=== PATIENT | female | born 1965 | race Caucasian/White ===

== ENCOUNTER 2025-01-02 09:35 | Outpatient (AMB) | payer OTHER, SELFPAY ==
--- NOTE | 2025-01-02 09:39 | A.OFFPC_ITS ---
Vital Signs 01/02/25 09:53 Height 5 ft 3.9 in Weight 145 lb 4 oz BMI 25.0 BP 115/66 Blood Pressure Location Lt brachial Position Sitting Respiration 12 Pulse 91 Pulse Source Pulse Oximeter Pulse Oximetry (%) 94 Oxygen Delivery Method Room Air Intake Visit Reasons: Est. Care Intake Note: New patient visit Nanotechnology Technician Required: No Allergies No Known Allergies Allergy (Verified 01/02/25 09:39) Medication List - Last Reconciled 01/02/25 by Taylor Wilkerson MD amlodipine 10 mg PO DAILY cholecalciferol (vitamin D3) 50 mcg PO DAILY olanzapine 20 mg PO BEDTIME simvastatin 20 mg PO DAILY Tobacco use date assessed: 01/02/25 Dental Screening Dental Screen Date: 01/02/25 Did you have a dental visit in the last 12 months?: Yes Did you have a dental problem in the last 6 months where you did not have access to dental care?: No Was dental information given to patient?: Patient has dentist HPI HPI Comments History of Present Illness Details The patient is a 59 year old female with a past medical history of hypertension, hyperlipidemia, low vitamin D, brain aneurysms presenting to [facility]. Transfer from [facility]. Records not yet received CV: On amlodipine, simvastatin. Blood pressure controlled. No chest pain, exertional dyspnea. Neuro: history of brain aneurysm. Coil and web with Dr Bettencourt. Follows with Dr Castorena every six months On vitamin D for prior low Vitamin D BH: Following with Dr Abdifatah alcocer in [facility]. On olanzapine Was having intermittent discharge from the right nipple last month for duration of one month that stopped. She is due for mammogram. Reports colonoscopy within the last 10 years at [facility] ROS see HPI PHYSICAL EXAM: GENERAL: Alert and oriented x 3. NAD EYES: EOMI. Anicteric. HENT: Moist mucous membranes. No scleral icterus. No cervical lymphadenopathy. LUNGS: Clear to auscultation bilaterally. CARDIOVASCULAR: Regular rate and rhythm. No murmur. No JVD. ABDOMEN: Soft, non-tender +bs EXTREMITIES: No edema. Non-tender. SKIN: No rashes or lesions. Warm. NEUROLOGIC: No focal neurological deficits. CN II-XII grossly intact PSYCHIATRIC: Cooperative. Appropriate mood and affect [facility] Surgical History H/O brain surgery H/O section Family History Mother Schizophrenia HTN (hypertension) Father HTN (hypertension) Other FHx: mental illness Substance abuse Social History Housing: House Alcohol intake: former Comment: quit 30 years ago Patient Tobacco Use Status: Current someday Tobacco user (quit cigarettes 5 years ago, now smokes cigars) Tobacco use type: Cigar (4 daily) Cigarette Packs Per Day: 1 Years Smoked: 30 e-Cigarette/Vaping Use: Never Used Second Hand Smoke Exposure: No Substance Use Type: Marijuana service: No Current occupational status: unemployed and disabled Current occupational exposures/hazards: No Cognitive needs: No Hearing needs: No Vision needs: Yes (glasses) Questionnaire PHQ-9 Over the last 2 weeks, how often have you been bothered by any of the following problems? 1. Little interest or pleasure in doing things: several days 2. Feeling down, depressed, or hopeless: not at all 3. Trouble falling or staying asleep, or sleeping too much: not at all 4. Feeling tired or having little energy: not at all 5. Poor appetite or overeating: not at all 6. Feeling bad about yourself - or that you are a failure or have let yourself or your family down: not at all 7. Trouble concentrating on things, such as reading the newspaper or watching television: not at all 8. Moving or speaking so slowly that other people could have noticed. Or the opposite - being so fidgety or restless that you have been moving around a lot more than usual: not at all 9. Thoughts that you would be better off or of hurting yourself in some way: not at all Total score: 1 Depression Screening Interpretation: Negative Depression Screening Done: Yes 21902 - PHQ-9 Billing: Yes Source: Developed by Drs. Zana Mason, Hilda Isaac, David Smith and colleagues, with an educational kat from [employer]. Thrive Questionnaire Date Thrive assessed: 01/02/25 I am a: Patient What is your living situation today?: I have a steady place to live Within the past 12 months, did the food you bought not last and you didn't have the money to get more?: Never true Within the past 12 months, did you worry whether your food would run out before you got money to buy more?: Never true Do you have trouble paying for medicines?: No Do you have trouble getting transportation to medical appointments?: No Do you have trouble paying your heating and electricity bill?: No Do you have trouble taking care of your child, family member or friend?: No Do you have trouble with day-to-day activities such as bathing, preparing meals, shopping, managing finances, etc.?: No Are you currently unemployed and looking for a job?: No Are you interested in more education?: No Please select the resources that you would like help with: None Currently or been in a relationship where the following occur: No concerns reported THRIVE Score: 0 AUDIT C Alcohol Use Questionnaire (AUDIT-C) 1. How often do you have a drink containing alcohol?: Never 3. How often do you have six or more drinks on one occasion?: Never Total Score: 0 KIRSTEN-7 AMB Questionnaire KIRSTEN-7 Date KIRSTEN - 7 assessed: 01/02/25 Feeling nervous, anxious, or on edge: 0 = Not at all Not being able to stop or control worryin = Not at all Worrying too much about different things: 0 = Not at all Trouble relaxin = Not at all Being so restless that it is hard to sit still: 0 = Not at all Becoming easily annoyed or irritable: 0 = Not at all Feeling afraid as if something awful might happen: 0 = Not at all Total KIRSTEN-7 score (0-4 normal; 5-9 mild; 10-14 moderate; 15-21 severe): 0 Source: Developed by Drs. Zana Mason, Hilda Isaac, David Smith and colleagues, with an educational kat from [employer]. KIRSTEN-7 Assessment Billing KIRSTEN-7 Assessment Tool: KIRSTEN-7 Assessment 64585 Physical exam (Primary Care) Vital Signs: Last Vital Signs Pulse 91 01/02/25 09:53 Resp 12 01/02/25 09:53 BP 115/66 01/02/25 09:53 Pulse Ox 94 01/02/25 09:53 Oxygen Delivery Method Room Air 01/02/25 09:53 BMI result Body Mass Index 25.0 Tobacco/Smoking Status: Tobacco use Status Tobacco use date assessed 01/02/25 01/02/25 09:43 Patient Tobacco Use Status Current someday Tobacco ( 01/02/25 09:50 quit cigarettes 5 years ago, now smokes cigars) Tobacco use type Cigar (4 daily) 01/02/25 09:50 e-Cigarette/Vaping Use Never Used 01/02/25 09:48 PHQ-9: PHQ-9 Score PHQ-9: Total score 1 01/02/25 09:43 Depression Screening Interpretation: Negative Thrive Assessment: Date of Thrive Assessment Date Thrive assessed 01/02/25 01/02/25 09:43 Currently or been in a relationship where the following occur: No concerns reported Coding Level of Care Code New Pt Level 4 (36784) Complex EM visit Add On G2211 Diagnoses Encounter to establish care Z76.89 Recurrent major depressive disorder, in partial remission F33.41 Depression Type: major depressive disorder Major depression recurrence: recurrent Active/Remission status: in partial remission Nipple discharge N64.52 Cerebral aneurysm I67.1 Additional Codes KIRSTEN-7 Assessment Billing - KIRSTEN-7 Assessment Tool: KIRSTEN-7 Assessment 85058 ([id number]) PHQ-9 - 20793 - PHQ-9 Billing: Yes ([id number]) Assessment & Plan Assessment & Plan (1) Encounter to establish care: Code(s): Z76.89 - Persons encountering health services in other specified circumstances Category: Medical (2) Depression: Code(s): F32.A - Depression, unspecified Category: Medical Qualifiers: Depression Type: major depressive disorder Major depression recurrence: recurrent Active/Remission status: in partial remission Qualified Code(s): F33.41 - Major depressive disorder, recurrent, in partial remission (3) Nipple discharge: Code(s): N64.52 - Nipple discharge Category: Medical (4) Cerebral aneurysm: Code(s): I67.1 - Cerebral aneurysm, nonruptured Category: Medical Plan 59 year old to establish care Past medical, surgical, social reviewed HTN well controlled on current medications Nipple discharge-mammo ordered cerebral aneurysm-follow up neurovascular Labs ordered Awaiting records. Orders: Orders MM diagnostic mammo BI Today N64.52 - Nipple discharge, Z12.39 - Encounter for other screening for malignant neoplasm of breast Complete Blood Count Auto Diff Today F32.A - Depression, unspecified, I67.1 - Cerebral aneurysm, nonruptured, Z13.0 - Encounter for screening for diseases of the blood and blood-forming organs and certain disorders involving the immune mechanism, Z13.220 - Encounter for screening for lipoid disorders, Z13.228 - Encounter for screening for other metabolic disorders Lipid Panel Today F32.A - Depression, unspecified, I67.1 - Cerebral aneurysm, nonruptured, Z13.0 - Encounter for screening for diseases of the blood and blood-forming organs and certain disorders involving the immune mechanism, Z13.220 - Encounter for screening for lipoid disorders, Z13.228 - Encounter for screening for other metabolic disorders Comprehensive Met. Panel Today F32.A - Depression, unspecified, I67.1 - Cerebral aneurysm, nonruptured, Z13.0 - Encounter for screening for diseases of the blood and blood-forming organs and certain disorders involving the immune mechanism, Z13.220 - Encounter for screening for lipoid disorders, Z13.228 - Encounter for screening for other metabolic disorders TSH reflex Free T4 Today F32.A - Depression, unspecified, I67.1 - Cerebral aneurysm, nonruptured, Z13.0 - Encounter for screening for diseases of the blood and blood-forming organs and certain disorders involving the immune mechanism, Z13.220 - Encounter for screening for lipoid disorders, Z13.228 - Encounter for screening for other metabolic disorders UA CC w/rflx Micro + Cult Today F32.A - Depression, unspecified, I67.1 - Cerebral aneurysm, nonruptured, Z13.0 - Encounter for screening for diseases of the blood and blood-forming organs and certain disorders involving the immune mechanism, Z13.220 - Encounter for screening for lipoid disorders, Z13.228 - Encounter for screening for other metabolic disorders Prolactin Today F32.A - Depression, unspecified, I67.1 - Cerebral aneurysm, nonruptured, Z13.0 - Encounter for screening for diseases of the blood and blood-forming organs and certain disorders involving the immune mechanism, Z13.220 - Encounter for screening for lipoid disorders, Z13.228 - Encounter for screening for other metabolic disorders
[2025-01-02 09:53] VITALS: BP 115/66; PULSE 91; RESP 12; O2SAT 94; BMI 25.0
--- OUTSIDE RECORDS SUMMARY | 2025-01-02 10:33 | XMS_ITS | Clinical Summary ---
Author Organization [facility] [address] [place] [address] [place] [phone] Phone Care Team Providers Care Senior Speech Pathologist Name Role Phone Silvana Blount MD Primary Care Provider [phone] Medications levETIRAcetam (KEPPRA) 1,000 mg tablet Take 1 tablet (1,000 mg total) by mouth 2 (two) times a day. 10/01/2022 Active OLANZapine (ZyPREXA) 20 mg tablet Take 1 tablet (20 mg total) by mouth. 06/14/2023 Active amLODIPine (NORVASC) 10 mg tablet TAKE 1 TABLET BY MOUTH DAILY 90 tablet 1 09/08/2024 Active simvastatin (ZOCOR) 20 mg tablet TAKE 1 TABLET BY MOUTH AT BEDTIME 90 tablet 1 10/24/2024 Active Active Problems Problem Noted Date Diagnosed Date Erythrocytosis 02/03/2018 Overview (10/21/2023): Secondary to tobacco use Leukocytosis 02/03/2018 Overview (10/21/2023): Secondary to tobacco use Osteoarthritis 02/03/2018 Overview (10/21/2023): Lumbosacral spine Schizophrenia (CMS/HCC V24, CMS/HCC V28) 018 Hypertension 04/10/2010 Anxiety 11/09/2007 Insomnia 11/09/2007 Smoking 11/09/2007 Immunizations Name Administration Dates Next Due Td Tetanus diptheria (Tdvax) 7yo and older 05/15 Surgical History Surgery Date Site/Laterality Comments SECTION 1988 PROCEDURE: HISTORICAL DELIVERY APPENDECTOMY 1976 PROCEDURE: HISTORICAL APPENDECTOMY TONSILLECTOMY PROCEDURE: HISTORICAL TONSILLECTOMY OTHER SURGICAL HISTORY 06/04/2010 PROCEDURE: GA DILATION & CURETTAGE DX&/THER NONOBSTETRIC; COMMENT: Thermal balloon endometrial ablation also performed by Dr. Michelle OTHER SURGICAL HISTORY PROCEDURE: HISTORICAL UNSPECIFIED SURGERY; COMMENT: repair aneurysm Medical History Medical History Date Comments Hypertension 04/10/2010 DX:Hypertension Anxiety 11/09/2007 DX:Anxiety Insomnia 11/09/2007 DX:Insomnia Smoking 11/09/2007 DX:Smoking Schizophrenia ([facility]/HCC V24, CMS/HCC V28) 02/03/2018 DX:Schizophrenia ([facility]) Osteoarthritis 02/03/2018 DX:Osteoarthriti s; COMMENT: Lumbosacral spine Erythrocytosis 02/03/2018 DX:Erythrocytosi s; COMMENT: Secondary to tobacco use Leukocytosis 02/03/2018 DX:Leukocytosis; COMMENT: Secondary to tobacco use Family History Medical History Relation Name Comments Stroke Other cousin, in her 40s (pat) Lung cancer Paternal Grandfather Stroke Sister 1 aneurysm in her 40s Relation Name Status Comments Brother accidental Father Alive asthma, lung di s, thyroid, HTn Maternal Grandfather UK Maternal Grandmother UK Mother Alive kidney failure HTn, CAD, PVD, borderline DM, HEP C Other Paternal Grandfather (Age 60's) lung cancer Paternal Grandmother (Age 97) he art failure Sister 1 Alive Sister 2 Alive 3 brain aneurys ms Social History Tobacco Use Types Packs/Day Years Used Date Smoking Tobacco: Former Cigarettes Alcohol Use Standard Drinks/Week Comments No 0 (1 standard drink = 0.6 oz pur e alcohol) Comments Unknown Sex and Gender Information Value Date Recorded Sex Assigned at Not on file Legal Sex Female 10:58 AM EST Gender Identity Not on file Sexual Orientation Not on file Obstetrics History Last Filed Vital Signs Vital Sign Reading Time Taken Comments Blood Pressure 130/86 03/01/2024 8:31 AM EDT Pulse 90 03/01/2024 8:31 AM EDT Temperature - - Respiratory Rate - - Oxygen Saturation - - Inhaled Oxygen Concentration - - Weight 72.6 kg (160 lb) 03/01/2024 8:31 AM EDT Height 167.6 cm (5' 6 ) 08/18/2023 9:06 AM EST Body Mass Index 25.82 08/18/2023 9:06 AM EST Plan of Treatment Upcoming Encounters Date Type Department Care Team (Late st Contact Info) Description 03/06/2025 3:00 PM EDT Office Visit Adult Medicine [facility] [address] [place] [phone] Silvana Blount MD [address] [place] [phone] Health Maintenance Due Date Last Done Comments Breast Cancer Screening 1965 Cervical Cancer Screening: P ap Smear 04/09/2013 04/09/2010 Pneumococcal Vaccine: 50+ Years (1 of 1 - PCV) 2014 Zoster Vaccines (1 of 2) 2014 Colorectal Cancer Screening: Colonoscopy 09/14/2023 Depression Screening 09/14/2023 HIV Screening 09/14/2023 Hepatitis C Screening 09/14/2023 Social Influencers of Health Screening 09/14/2023 COVID-19 Vaccine (3 - 2023-2 5 season) 2024 05/20/2021, 04/28/2021 Hypertension/CHF/CAD Annual BMP Blood Test 03/01/2025 03/01/2024 Influenza Vaccine (Season Ended) 2025 Cholesterol Screening (Lipid Panel) 03/01/2029 03/01/2024, 08/18/2023 DTaP,Tdap,and Td Vaccines (3 - Td or Tdap) 03/01/2034 03/01/2024, 05/15/2008 RSV Immunization Adult Patients (1 - 1-dose 75+ series) 12/12/2039 HIB Vaccines Aged Out No longer eligi ble based on patient's age to complete this topic HPV Vaccines Aged Out No longer eligi ble based on patient's age to complete this topic Hepatitis A Vaccines Aged Out No long er eligible based on patient's age to complete this topic Hepatitis B Vaccines Aged Out No long er eligible based on patient's age to complete this topic IPV Vaccines Aged Out No longer eligi ble based on patient's age to complete this topic MMR Vaccines Aged Out No longer eligi ble based on patient's age to complete this topic Meningococcal ACWY Vaccine Aged Out N o longer eligible based on patient's age to complete this topic Meningococcal B Vaccine Aged Out No l onger eligible based on patient's age to complete this topic Pneumococcal Vaccine: Pediatrics (0 to 5 Years) and At-Risk Patients (6 to 64 Years) Aged Out No longer eligible b ased on patient's age to complete this topic RSV Immunization Patients Under 20 months Aged Out No longer eligible b ased on patient's age to complete this topic Varicella Vaccines Aged Out No longer eligible based on patient's age to complete this topic Care Teams Senior Speech Pathologist Relationship Specialty Start Date End Date Silvana Blount MD [address] [place] [id number] PCP - General 10/05/22
== END 2025-01-02 10:26 | disposition home or self-care (01) ==
LOC: HO.HMCFM 09:35
PROVIDERS: PCP Internal Medicine; Visit Provider Internal Medicine
DX: Z76.89 Persons encountering health services in other specified circumstances (principal); F33.41 Major depressive disorder, recurrent, in partial remission; N64.52 Nipple discharge; I67.1 Cerebral aneurysm, nonruptured

== ENCOUNTER → 2025-01-02 09:35 | Outpatient (BNVA) | payer MEDICARE, SELFPAY | PROVIDERS: PCP Internal Medicine; Visit Provider Internal Medicine ==

== ENCOUNTER 2025-01-02 10:46 | Outpatient (REF) | payer MEDICARE, SELFPAY ==
--- OUTSIDE RECORDS SUMMARY | 2025-01-02 12:01 | XMS_ITS | Clinical Summary ---
Author Organization [facility] [address] [place] [address] [place] [phone] Phone Care Team Providers Care Pig Machine Operator Helper Name Role Phone Silvana Blount MD Primary Care Provider [phone] Medications levETIRAcetam (KEPPRA) 1,000 mg tablet Take [...] HISTORICAL TONSILLECTOMY OTHER SURGICAL HISTORY 06/04/2010 PROCEDURE: PA DILATION & CURETTAGE DX&/THER NONOBSTETRIC; COMMENT: Thermal balloon endometrial ablation also performed by Dr. Michelle OTHER SURGICAL HISTORY PROCEDURE: HISTORICAL UNSPECIFIED SURGERY; COMMENT: repair aneurysm Medical History Medical History Date Comments Hypertension 04/10/2010 DX:Hypertension Anxiety 11/09/2007 DX:Anxiety Insomnia 11/09/2007 DX:Insomnia Smoking 11/09/2007 DX:Smoking Schizophrenia ([facility]/HCC V24, CMS/HCC V28) 02/03/2018 DX:Schizophrenia ([facility]) Osteoarthritis 02/03/2018 DX:Osteoarthriti s; COMMENT: Lumbosacral spine [...] 3:00 PM EDT Office Visit Adult Medicine [facility] [address] [place] [phone] Silvana Blount MD [address] [place] [phone] Health Maintenance Due Date Last Done Comments [...] age to complete this topic Care Teams Pig Machine Operator Helper Relationship Specialty Start Date End Date Silvana Blount MD [address] [place] [phone] PCP - General 10/05/22
[2025-01-02 14:23] LABS: MANUAL DIFF FLAG NO
[2025-01-02 14:25] LABS: Appearance Urine Clear; Color Urine Yellow; Glucose Urine UA Negative (Negative); Leukocyte Esterase Urine Negative (Negative); Nitrite Urine Negative (Negative); Urine Blood Negative (Negative); Urine Ketones Negative (Negative); Urine Protein Negative (Neg-Trace)
[2025-01-02 14:27] LABS: Basophils Absolute Auto 0.1 X10*3/uL (0.0-0.2); Basophils Percent Auto 0.5 % (0-2); Eosinophils Percent Auto 0.2 % (0-4); Hemoglobin 16.6 g/dl (12.0-16.0); Imm Gran Abs Auto 0.04 X10*3/uL (0.00-0.03); Imm Gran Pct Auto 0.4 % (0.0-0.4); Lymphocytes Absolute Auto 3.6 X10*3/uL (1.2-4.9); Lymphocytes Percent Auto 33.7 % (20-40); Mean Corpuscular HGB Conc 36.1 g/dl (31.0-35.0); Mean Corpuscular Hemoglobin 28.6 pg (27.0-33.0); Mean Corpuscular Volume 79.3 fL (80.0-98.0); Mean Platelet Volume 11.3 fL (9.4-12.3); Monocytes Absolute Auto 0.5 X10*3/uL (0.1-1.2); Monocytes Percent Auto 4.4 % (2-11); Neutrophils Absolute Auto 6.5 x10*3/uL (2.0-8.3); Neutrophils Percent Auto 60.8 % (45-73); Platelet Count 293 X10*3/uL (160-400); Red Cell Distribution Width 13.9 % (11.0-16.0); White Blood Count 10.7 X10*3/uL (4.8-10.8)
[2025-01-02 14:48] LABS: Alanine Aminotransferase 18 U/L (0-31); Albumin Level 4.4 g/dL (3.5-5.0); Alkaline Phosphatase 134 U/L (39-117); Anion Gap 9 (12-20); Aspartate Amino Transferase 27 U/L (5-31); Bilirubin Total 0.3 mg/dL (0.0-1.0); Blood Urea Nitrogen 10 mg/dL (9-16); Calcium 10.1 mg/dL (8.4-10.2); Carbon Dioxide 26 mmol/L (22-29); Chloride 106 mmol/L (96-108); Cholesterol 134 mg/dL (<200); Estimated Glomerular Filt Rate > 60; Glucose Random 86 mg/dL (60-115); HDL Cholesterol 50 mg/dL (>40); LDL Cholesterol Calculated 71 mg/dL (<100); Potassium 4.3 mmol/L (3.3-5.1); Sodium 137 mmol/L (135-145); Total Protein 7.5 g/dL (6.5-8.0); Triglycerides 69 mg/dL (<150)
[2025-01-02 15:03] LABS: TSH reflex Free T4 0.75 uIU/mL (0.32-4.0)
[2025-01-03 05:02] LABS: Prolactin 6.9 ng/mL
== END 2025-01-02 10:47 | disposition home or self-care (01) ==
LOC: HO.WFDLDS 10:46
PROVIDERS: Visit Provider Internal Medicine
DX: Z76.89 Persons encountering health services in other specified circumstances (principal); F33.41 Major depressive disorder, recurrent, in partial remission; N64.52 Nipple discharge; I67.1 Cerebral aneurysm, nonruptured; Z13.0 Encounter for screening for diseases of the blood and blood-forming organs and certain disorders involving the immune mechanism; Z13.228 Encounter for screening for other metabolic disorders; Z13.220 Encounter for screening for lipoid disorders
CPT/HCPCS: 36415; 80053; 80061; 81003; 84146; 84443; 85025; 96127; 99202

== ENCOUNTER 2025-01-18 07:49 | Outpatient (REF) | payer MEDICARE, SELFPAY ==
--- NOTE | ~2025-01-18 | US_ITS ---
EXAMINATION: MM DIAGNOSTIC DIGITAL BREAST TOMOSYNTHESIS, BILATERAL Limited right breast ultrasound. CLINICAL INFORMATION: Right bloody nipple discharge for one month. COMPARISON: Mammography: Comparison is made with relevant prior exams. TECHNIQUE: Digital breast mammography with tomosynthesis is performed in both the craniocaudal and mediolateral oblique views along with computer-aided detection (CAD). FINDINGS: There are scattered areas of fibroglandular density (ACR BI-RADS breast composition Category b). Left: Scattered focal asymmetries are stable from prior. No suspicious calcifications masses or other abnormal findings. Right: There are no significant masses, abnormal calcifications, or other abnormalities. Targeted color Doppler ultrasound scanning in the right retroareolar region area of patient's bloody nipple discharge demonstrates normal fibronodular breast tissue. There is no sonographic abnormal findings to correlate with the bilateral nipple discharge. Results are provided to the patient at time of visit by the technologist. US/US breast RT limited mamm only IMPRESSION: Left: Benign. Right: No mammographic or sonographic abnormal finding to correlate with the patient's bloody nipple discharge. Breast MRI with contrast should be considered for further evaluation. Breast MRI would need to be ordered by the patient's providing clinician. ASSESSMENT: BI-RADS BI-RADS 2 - Benign Findings RECOMMENDATION: 1 year F/U This patient's information was entered into a reminder system with a target due date for their next mammogram. Electronically signed by: Aylin Morejon DO 01/18/2025 10:59 AM EDT
--- OUTSIDE RECORDS SUMMARY | 2025-01-18 07:53 | XMS_ITS | Clinical Summary ---
Author Organization [facility] [address] [place] [address] [place] [phone] Phone Care Team Providers Care Magnetic Tape Typewriter Operator Name Role Phone Silvana Blount MD Primary Care Provider [phone] Medications levETIRAcetam (KEPPRA) 1,000 mg tablet Take [...] HISTORICAL TONSILLECTOMY OTHER SURGICAL HISTORY 06/04/2010 PROCEDURE: [place] DILATION & CURETTAGE DX&/THER NONOBSTETRIC; COMMENT: Thermal balloon endometrial ablation also performed by Dr. Michelle OTHER SURGICAL HISTORY PROCEDURE: HISTORICAL UNSPECIFIED SURGERY; COMMENT: repair aneurysm Medical History Medical History Date Comments Hypertension 04/10/2010 DX:Hypertension Anxiety 11/09/2007 DX:Anxiety Insomnia 11/09/2007 DX:Insomnia Smoking 11/09/2007 DX:Smoking Schizophrenia ([facility]/HCC V24, CMS/HCC V28) 02/03/2018 DX:Schizophrenia ([facility]) Osteoarthritis 02/03/2018 DX:Osteoarthriti s; COMMENT: Lumbosacral spine [...] 3:00 PM EDT Office Visit Adult Medicine [facility] [place] [place] [address] [place] [phone] Silvana Blount MD [address] [place] [phone] Health Maintenance Due Date Last Done Comments [...] age to complete this topic Care Teams Magnetic Tape Typewriter Operator Relationship Specialty Start Date End Date Silvana Blount MD [address] [place] [phone] PCP - General 10/05/22
== END 2025-01-18 07:50 | disposition home or self-care (01) ==
LOC: HO.MAMMO 07:49
PROVIDERS: PCP Internal Medicine; Visit Provider Internal Medicine
DX: N64.52 Nipple discharge (principal)
CPT/HCPCS: 76642; 77062; 77066

== ENCOUNTER → 2025-01-18 08:00 | Outpatient (BNV) | payer MEDICARE, SELFPAY | PROVIDERS: PCP Internal Medicine; Visit Provider Internal Medicine | DX: N64.52 Nipple discharge (principal) | CPT/HCPCS: 76642; 77066; G0279 ==

== ENCOUNTER → 2025-03-12 13:26 | Outpatient (BNV) | payer MEDICARE, SELFPAY | PROVIDERS: PCP Internal Medicine; Visit Provider Internal Medicine | DX: N64.52 Nipple discharge (principal) | CPT/HCPCS: 77049 ==

== ENCOUNTER 2025-03-12 13:34 | Outpatient (REF) | payer MEDICARE, SELFPAY ==
--- NOTE | ~2025-03-12 | MR_ITS ---
EXAMINATION: MR BREAST WITHOUT AND WITH CONTRAST, BILATERAL CLINICAL INFORMATION: History of right bloody nipple discharge for one month January 2025. Patient does not have current bloody nipple discharge at this time. COMPARISON: Comparison is made with relevant prior imaging. TECHNIQUE: MR imaging of the breast was performed using T1, T2 and fat saturated techniques. Dynamic multiphase imaging was also performed after the administration of intravenous gadolinium contrast agent. Computer generated 3D reconstruction and enhancement kinetic analysis was ulitized by the radiologist in the interpretation of this examination. FINDINGS: Breast composition: Heterogeneous fibroglandular breast tissue Background parenchymal enhancement: Moderate LEFT BREAST: No suspicious enhancing masses or areas of non mass enhancement. No axillary or internal mammary adenopathy. RIGHT BREAST: No suspicious enhancing masses or areas of non mass enhancement. No axillary or internal mammary adenopathy. Limited views of the chest and abdomen are unremarkable. MR/MR breast BI wo/w con IMPRESSION: Left: Negative. Right: No MRI evidence of malignancy or abnormal finding to explain right previous bloody nipple discharge. Patient had diagnostic workup for bloody nipple discharge with mammogram and ultrasound January 2025 which was negative. Recommend clinical evaluation follow-up. ASSESSMENT: LEFT BREAST: BI-RADS 1-Negative RIGHT BREAST: BI-RADS 1-Negative RECOMMENDATIONS: Yearly screening mammography Yearly Breast MRI screening surveillance. Electronically signed by: Aylin Morejon DO 03/13/2025 04:24 PM EDT
--- OUTSIDE RECORDS SUMMARY | 2025-03-12 14:15 | XMS_ITS | Clinical Summary ---
Author Organization [facility] [address] [place] [address] [place] [phone] Phone Care Team Providers Care Lamp Shade Sewer Name Role Phone Silvana Blount MD Primary Care Provider [phone] Medications levETIRAcetam (KEPPRA) 1,000 mg tablet Take [...] HISTORICAL TONSILLECTOMY OTHER SURGICAL HISTORY 06/04/2010 PROCEDURE: MD DILATION & CURETTAGE DX&/THER NONOBSTETRIC; COMMENT: Thermal balloon endometrial ablation also performed by Dr. Michelle OTHER SURGICAL HISTORY PROCEDURE: HISTORICAL UNSPECIFIED SURGERY; COMMENT: repair aneurysm Medical History Medical History Date Comments Hypertension 04/10/2010 DX:Hypertension Anxiety 11/09/2007 DX:Anxiety Insomnia 11/09/2007 DX:Insomnia Smoking 11/09/2007 DX:Smoking Schizophrenia ([facility]/HCC V24, CMS/HCC V28) 02/03/2018 DX:Schizophrenia ([facility]) Osteoarthritis 02/03/2018 DX:Osteoarthriti s; COMMENT: Lumbosacral [...] Care Team (Late st Contact Info) Description 06/26/2025 2:30 PM EST Office Visit Adult Medicine [facility] [address] [place] [phone] Wilian Resendiz PA [address] [place] [address] Health Maintenance Due Date Last Done Comments Breast Cancer Screening 1965 Cervical Cancer Screening: P ap Smear 04/09/2013 04/09/2010 Pneumococcal Vaccine: 50+ Years (1 of 1 - PCV) 2014 Zoster Vaccines (1 of 2) 2014 Colorectal Cancer Screening: Colonoscopy 09/14/2023 HIV Screening 09/14/2023 Hepatitis C Screening 09/14/2023 Medicare Annual Wellness Visit 09/14/2023 Social Influencers of Health Screening 09/14/2023 COVID-19 Vaccine (3 - 2023-2 5 season) 2024 05/20/2021, 04/28/2021 Depression Screening 08/16/2024 Hypertension/CHF/CAD Annual BMP Blood Test 03/01/2025 03/01/2024 Influenza Vaccine (#1) 2025 Cholesterol Screening (Lipid Panel) 03/01/2029 03/01/2024, [...] on patient's age to complete this topic Insurance [employer] MEDICARE MEDICAID - [place] Care Teams Lamp Shade Sewer Relationship Specialty Start Date End Date Silvana Blount MD [address] [place] [id number] PCP - General 10/05/22
--- OUTSIDE RECORDS SUMMARY | 2025-03-12 14:15 | XMS_ITS | Clinical Summary ---
Author Organization [facility] Address [address] [facility] [address] [place] [phone] Phone Care Team Providers Care Checkering Machine Adjuster Name Role Phone Karlee Meyers MD Primary Care Provider Unavailable Allergies No known active allergies Medications OLANZapine (ZYPREXA) 20 MG tablet Take 20 mg by mouth nightly at bedtime. Active lidocaine-diphe nhydramine-alum -mag-simethicon e (MAGIC MOUTHWASH-BLM) 325-64-002-40 mg/30 mL suspension Swish and spit 10 mL 4 (four) times a day as needed. 400 mL 05/13/2020 Active Active Problems No known active problems Social History Tobacco Use Types Packs/Day Years Used Date Smoking Tobacco: Every Day Smokeless Tobacco: Never Alcohol Use Standard Drinks/Week Comments Never 0 (1 standard drink = 0.6 oz pur e alcohol) Education Answer Date Recorded Are you interested in more education? Not on paula e 2022 Are you concerned about learning? Not on file 2022 No 2022 No 2022 Digital Access Answer Date Recorded No 01/09/2023 No 01/09/2023 No 01/09/2023 Reliable internet access at home? Not on file 01/09/2023 Device with a working camera? Not on file Comments Unknown Sex and Gender Information Value Date Recorded Sex Assigned at Not on file Legal Sex Female 10:33 PM EDT Gender Identity Not on file Sexual Orientation Not on file Last Filed Vital Signs Vital Sign Reading Time Taken Comments Blood Pressure 119/80 05/13/2020 5:12 PM EDT Pulse 85 05/13/2020 5:12 PM EDT Temperature 36.8 C (98.2 F) 05/13/2020 5:12 PM EDT Respiratory Rate - - Oxygen Saturation 95% 05/13/2020 5:12 PM EDT Inhaled Oxygen Concentration - - Weight 67.1 kg (148 lb) 05/13/2020 5:12 PM EDT Height 167.6 cm (5' 6 ) 05/13/2020 5:12 PM EDT Body Mass Index 23.89 05/13/2020 5:12 PM EDT Plan of Treatment Health Maintenance Due Date Last Done Comments LIPID PANEL 1964 DEPRESSION SCREENING 1976 SMOKING Hx and SMOKELESS TOBACCO SCREENING 1977 HEPATITIS C SCREENING 1982 HIV ONE-TIME SCREENING (18-6 5 YEARS) 1982 PNEUMOCOCCAL VACCINES (50+ years) (1 of 2 - PCV) 12/12/1983 PAP SMEAR 1985 MAMMOGRAM 2004 COLOGUARD 2009 COLONOSCOPY 2009 COLORECTAL CANCER SCREENING 2009 FIT TEST 2009 FOBT 2009 SIGMOIDOSCOPY 2009 VIRTUAL COLONOSCOPY 2009 ZOSTER VACCINES (1 of 2) 2014 Adult Td,Tdap Booster 05/15/2018 05/15/2008 COVID-19 VACCINE (3 - 2023-2 5 season) 2024 05/20/2021, 04/28/2021 RSV VACCINE (1 - 1-dose 75+ series) 12/12/2039 HEPATITIS A VACCINES Aged Out No long er eligible based on patient's age to complete this topic HIB VACCINES Aged Out No longer eligi ble based on patient's age to complete this topic MENINGOCOCCAL VACCINES (ACWY) Aged Out No longer eligible based on patient's age to complete this topic MENINGOCOCCAL VACCINES (B) Aged Out N o longer eligible based on patient's age to complete this topic Medical Devices Not on file Insurance [facility] Care Teams Checkering Machine Adjuster Relationship Specialty Start Date End Date Karlee Meyers MD PCP - General Internal Medicine 05/13/20 Additional Source Comments The information contained in this document represents components of the legal health record. It is not the complete legal health record.[facility]
== END 2025-03-12 13:35 | disposition home or self-care (01) ==
LOC: HO.MRI 13:34
PROVIDERS: PCP Internal Medicine; Visit Provider Internal Medicine
DX: Z12.39 Encounter for other screening for malignant neoplasm of breast (principal); N64.52 Nipple discharge
CPT/HCPCS: 77049; A9585

== ENCOUNTER 2025-07-09 09:18 | Outpatient (AMB) | payer OTHER, SELFPAY ==
--- NOTE | 2025-07-09 09:34 | MHC.PC.OV ---
Vital Signs 07/09/25 09:37 Height 5 ft 3.9 in Weight 144 lb 2 oz BMI 24.8 BP 104/68 Blood Pressure Location Rt brachial Position Sitting Respiration 14 Pulse 66 Pulse Source Pulse Oximeter Temp 98.2 F Temp Source Oral Pulse Oximetry (%) 96 Oxygen Delivery Method Room Air Intake Visit Reasons: follow up - see comments Intake Note: Follow up Chemistry Department Chair Required: No Allergies No Known Allergies Allergy (Verified 07/09/25 09:35) Tobacco use date assessed: 01/02/25 Dental Screening Dental Screen Date: 01/02/25 HPI HPI Comments History of Present Illness Details The patient is a 59 year old female with a past medical history of hypertension, hyperlipidemia, low vitamin D, brain aneurysms presenting for follow up CV: On amlodipine, simvastatin. BP is controlled on medication. No chest pain, exertional dyspnea. Neuro: history of brain aneurysm. Coil and web with Dr Bettencourt. Follows with Dr Castorena every six months. Next appt Aug 06. On vitamin D for prior low Vitamin D BH: Following with Dr Abdifatah Brown in [facility]. On olanzapine Reports colonoscopy within the last 10 years at [facility] MRI breast was reassuring. She had been having some bloody nipple discharge right which has since resolved. ROS see HPI PHYSICAL EXAM: GENERAL: Alert and oriented x 3. NAD EYES: EOMI. Anicteric. HENT: Moist mucous membranes. No scleral icterus. No cervical lymphadenopathy. LUNGS: Clear to auscultation bilaterally. CARDIOVASCULAR: Regular rate and rhythm. No murmur. No JVD. ABDOMEN: Soft, non-tender +bs EXTREMITIES: No edema. Non-tender. SKIN: No rashes or lesions. Warm. NEUROLOGIC: No focal neurological deficits. CN II-XII grossly intact PSYCHIATRIC: Cooperative. Appropriate mood and affect [facility] Surgical History H/O brain surgery H/O section Family History Mother Schizophrenia HTN (hypertension) Father HTN (hypertension) Other FHx: mental illness Substance abuse Social History Housing: House Alcohol intake: former Comment: quit 30 years ago Patient Tobacco Use Status: Current someday Tobacco user (quit cigarettes 5 years ago, now smokes cigars. One cigar per day) Tobacco use type: Cigar (4 daily) Cigarettes Per Day: 1 Years Smoked: 30 e-Cigarette/Vaping Use: Never Used Second Hand Smoke Exposure: No Substance Use Type: Marijuana service: No Current occupational status: unemployed and disabled Current occupational exposures/hazards: No Cognitive needs: No Hearing needs: No Vision needs: Yes (glasses) Questionnaire Thrive Questionnaire Date Thrive assessed: 01/02/25 I am a: Patient What is your living situation today?: I have a steady place to live Within the past 12 months, did the food you bought not last and you didn't have the money to get more?: Never true Within the past 12 months, did you worry whether your food would run out before you got money to buy more?: Never true Do you have trouble paying for medicines?: No Do you have trouble getting transportation to medical appointments?: No Do you have trouble paying your heating and electricity bill?: No Do you have trouble taking care of your child, family member or friend?: No Do you have trouble with day-to-day activities such as bathing, preparing meals, shopping, managing finances, etc.?: No Are you currently unemployed and looking for a job?: No Are you interested in more education?: No Please select the resources that you would like help with: None Currently or been in a relationship where the following occur: No concerns reported THRIVE Score: 0 AUDIT C Alcohol Use Questionnaire (AUDIT-C) 2. How many drinks containing alcohol do you have on a typical day when you are drinking?: 1 or 2 3. How often do you have six or more drinks on one occasion?: Never Total Score: 0 KIRSTEN-7 AMB Questionnaire KIRSTEN-7 Date KIRSTEN - 7 assessed: 01/02/25 Source: Developed by Drs. Zana Mason, Hilda Isaac, David Smith and colleagues, with an educational kat from [employer]. Physical exam (Primary Care) Vital Signs: Last Vital Signs Temp 98.2 F 07/09/25 09:37 Pulse 66 07/09/25 09:37 Resp 14 07/09/25 09:37 BP 104/68 07/09/25 09:37 Pulse Ox 96 07/09/25 09:37 Oxygen Delivery Method Room Air 07/09/25 09:37 BMI result Body Mass Index 24.8 Tobacco/Smoking Status: Tobacco use Status Tobacco use date assessed 01/02/25 07/09/25 09:41 Patient Tobacco Use Status Current someday Tobacco ( 07/09/25 09:41 quit cigarettes 5 years ago, now smokes cigars. One cigar per day) Tobacco use type Cigar (4 daily) 07/09/25 09:41 e-Cigarette/Vaping Use Never Used 07/09/25 09:41 Thrive Assessment: Date of Thrive Assessment Date Thrive assessed 01/02/25 07/09/25 09:41 Currently or been in a relationship where the following occur: No concerns reported Coding Level of Care Code Est Pt Level 4 (05388) Diagnoses Recurrent major depressive disorder, in partial remission F33.41 Depression Type: major depressive disorder Major depression recurrence: recurrent Active/Remission status: in partial remission Cerebral aneurysm I67.1 Nipple discharge N64.52 Assessment & Plan Assessment & Plan (1) Depression: Code(s): F32.A - Depression, unspecified Category: Medical Qualifiers: Depression Type: major depressive disorder Major depression recurrence: recurrent Active/Remission status: in partial remission Qualified Code(s): F33.41 - Major depressive disorder, recurrent, in partial remission (2) Cerebral aneurysm: Code(s): I67.1 - Cerebral aneurysm, nonruptured Category: Medical (3) Nipple discharge: Code(s): N64.52 - Nipple discharge Category: Medical Plan 59 year old presenting for follow up Blood pressure is well controlled. Continue amlodipine HLD-check labs BH-well controlled on current medications Orders: Orders Complete Blood Count Auto Diff 6 Months F33.41 - Major depressive disorder, recurrent, in partial remission, Z13.0 - Encounter for screening for diseases of the blood and blood-forming organs and certain disorders involving the immune mechanism, Z13.220 - Encounter for screening for lipoid disorders, Z13.228 - Encounter for screening for other metabolic disorders Comprehensive Met. Panel 6 Months F33.41 - Major depressive disorder, recurrent, in partial remission, Z13.0 - Encounter for screening for diseases of the blood and blood-forming organs and certain disorders involving the immune mechanism, Z13.220 - Encounter for screening for lipoid disorders, Z13.228 - Encounter for screening for other metabolic disorders Lipid Panel 6 Months F33.41 - Major depressive disorder, recurrent, in partial remission, Z13.0 - Encounter for screening for diseases of the blood and blood-forming organs and certain disorders involving the immune mechanism, Z13.220 - Encounter for screening for lipoid disorders, Z13.228 - Encounter for screening for other metabolic disorders Hemoglobin A1c 6 Months F33.41 - Major depressive disorder, recurrent, in partial remission, Z13.0 - Encounter for screening for diseases of the blood and blood-forming organs and certain disorders involving the immune mechanism, Z13.220 - Encounter for screening for lipoid disorders, Z13.228 - Encounter for screening for other metabolic disorders TSH reflex Free T4 6 Months F33.41 - Major depressive disorder, recurrent, in partial remission, Z13.0 - Encounter for screening for diseases of the blood and blood-forming organs and certain disorders involving the immune mechanism, Z13.220 - Encounter for screening for lipoid disorders, Z13.228 - Encounter for screening for other metabolic disorders
[2025-07-09 09:37] VITALS: BP 104/68; PULSE 66; RESP 14; TEMP 36.8; O2SAT 96; BMI 24.8
--- OUTSIDE RECORDS SUMMARY | 2025-07-09 10:24 | XMS_ITS | Clinical Summary ---
Author Organization [facility] Address [address] [facility] [address] [place] [phone] Phone Care Team Providers Care Electric Accounting Machine Operator Name Role Phone Karlee Meyers MD Primary Care Provider Unavailable Allergies No known active allergies Medications OLANZapine (ZYPREXA) 20 MG tablet Take 20 mg by mouth nightly at bedtime. Active lidocaine-diphe nhydramine-alum -mag-simethicon e (MAGIC MOUTHWASH-BLM) 748-81-470-40 mg/30 mL suspension Swish and spit 10 [...] 2) 2014 Adult Td,Tdap Booster 05/15/2018 05/15/2008 INFLUENZA VACCINE (#1) 2025 COVID-19 VACCINE (3 - 2024-2 6 season) 2025 05/20/2021, 04/28/2021 RSV VACCINE (1 - 1-dose [...] topic Medical Devices Not on file Insurance [facility] Care Teams Electric Accounting Machine Operator Relationship Specialty Start Date End Date Karlee Meyers MD PCP - General Internal Medicine 05/13/20 Additional Source Comments The information contained in this document represents components of the legal health record. It is not the complete legal health record.[facility]
== END 2025-07-09 11:18 | disposition home or self-care (01) ==
LOC: HO.HMCFM 09:19
PROVIDERS: PCP Internal Medicine; Visit Provider Internal Medicine
DX: F33.41 Major depressive disorder, recurrent, in partial remission (principal); I67.1 Cerebral aneurysm, nonruptured; N64.52 Nipple discharge